=== PATIENT | female | born 1975 | race Caucasian/White ===

== ENCOUNTER 2020-08-18 11:29 | Emergency (ER) | payer OTHER ==
[~2020-08-18] VITALS: Ht 160 cm; Wt 92.1 kg
[~2020-08-18 11:29] MED LIST: FLAGYL500 MG PO; LEVAQUIN500 MG PO; METFORMIN HCL500 MG PO
[2020-08-18] MEDS ORDERED: SODIUM CHLORIDE 0.9% 1000ML 1,000 ML IV STA (11:43)
[2020-08-18] MEDS ORDERED: ONDANSETRON HCL INJ 2MG/ML 2ML 2 MG/ML VIAL IV PRN (11:45)
[2020-08-18] MEDS ORDERED: MORPHINE SULFATE INJ 4 MG/ML INJ 1ML IV PRN (11:45)
[2020-08-18 11:53] LABS: BASOPHILS # (AUTO) 0.1 (0.0-0.1); BASOPHILS % 0.8 % (0.0-1.0); EOSINOPHILS # (AUTO) 0.1 (0.0-0.4); HEMATOCRIT 43.6 % (34.2-44.1); HEMOGLOBIN 15.6 g/dL (12.0-16.0); LYMPHOCYTES # (AUTO) 1.7 (1.0-3.2); LYMPHOCYTES % 28.3 % (18.0-39.1); MEAN CORPUSCULAR HEMOGLOBIN 30.5 pg (28-32); MEAN CORPUSCULAR HGB CONC 35.8 g/dL (31-35); MEAN CORPUSCULAR VOLUME 85.2 fL (81-99); MONOCYTES # (AUTO) 0.3 (0.2-0.8); MONOCYTES % 5.3 % (4.4-11.3); NEUTROPHILS # (AUTO) 3.8 (2.1-6.9); NEUTROPHILS % 64.3 % (38.7-80.0); PLATELET COUNT 195 x10e3/uL (140-360); RED BLOOD COUNT 5.12 x10e6/uL (3.6-5.1); RED CELL DISTRIBUTION WIDTH 12.5 % (11.7-14.4)
[2020-08-18 11:57] LABS: BILIRUBIN,URINE NEGATIVE (NEGATIVE); CLARITY,URINE CLEAR (CLEAR); COLOR,URINE YELLOW (YELLOW); KETONES,URINE TRACE (NEGATIVE); LEUKOCYTE ESTERASE ,URINE NEGATIVE (NEGATIVE); NITRITE,URINE NEGATIVE (NEGATIVE); PROTEIN,URINE DIPSTICK NEGATIVE (NEGATIVE); URINE UROBILINOGEN 0.2 mg/dL (0.2 - 1)
[2020-08-18 12:02] LABS: BACTERIA,URINE FEW /HPF; EPITHELIAL CELLS,URINE FEW /LPF; MUCUS,URINE RARE (RARE); WBC,URINE (MAN) 0-5 /HPF (0-5)
--- NOTE | 2020-08-18 12:05 | Emergency Department Note ---
History of Present Illnes History of Present Illness Chief Complaint: Abdominal Complaints History of Present Illness This is a 45 year old female arrived to the ED with complaints of abdominal pain nausea vomiting for several days. Sensation states she has multiple family members with colon cancer and she is concerned to getting the same. Patient states she had a colonoscopy 5 years ago that removed benign polyps. Patient states she was told to follow-up in 7 years that has lapsed insurance and is requesting one here in the ED. Chief Complaint Comment PATIENT IN FROM HOME WITH COMPLAINTS OF ABDOMINAL PAIN, NAUSEA, AND DIARRHEA X 5 DAYS; PATIENT RATES PAIN 8/10, APPEARS IN NO DISTRESS, HISTORY OF CROHNS - STATES THAT THIS MAY BE AN EXACERBATION OF THAT. PATIENT STATES SHE HAS BEEN OFF OF ALL OF HER MEDICATIONS X 4 YEARS DUE TO INSURANCE REASONS Historian: Patient Arrival Mode: Car [employer] Supervisor Required: No Onset (how long ago): day(s) Timing of current episode: constant Progression: unchanged Chronicity: recurrent Relieving factors: none Exacerbating factors: none Past Medical/Family History Physician Review I have reviewed the patient's past medical and family history. Any updates have been documented here. Past Medical History Recent Fever: No Clinical Suspicion of Infectio: No New/Unexplained Change in Ment: No Past Medical History: Diabetes Other Medical History: CROHNS DISEASE Past Surgical History: Cholecysctectomy Other Last Tetanus: UTD Review of Systems Review of Systems Constitutional: Reports no symptoms EENTM: Reports no symptoms Cardiovascular: Reports no symptoms Respiratory: Reports no symptoms Gastrointestinal: Reports as per HPI, Reports abdominal pain Genitourinary: Reports no symptoms Musculoskeletal: Reports no symptoms Integumentary: Reports no symptoms Neurological: Reports no symptoms Psychological: Reports no symptoms Endocrine: Reports no symptoms Hematological/Lymphatic: Reports no symptoms Physical Exam Related Data Allergies: Coded Allergies: No Known Allergies (Unverified , 02/23/12) Triage Vital Signs Vital Signs Date Time Temp Pulse Resp B/P (MAP) Pulse Ox O2 Delivery O2 Flow Rate FiO2 08/18/20 11:35 99.0 115 20 169/91 99 Room Air Vital signs reviewed: Yes Physical Exam CONSTITUTIONAL Constitutional: Present well-developed, Present well-nourished HENT HENT: Present normocephalic, Present atraumatic, Present oropharynx clear/moist, Present nose normal HENT L/R: Present left ext ear normal, Present right ext ear normal EYES Eyes: Reports PERRL, Reports conjunctivae normal NECK Neck: Present ROM normal PULMONARY Pulmonary: Present effort normal, Present breath sounds normal CARDIOVASCULAR Cardiovascular: Present regular rhythm, Present heart sounds normal, Present capillary refill normal, Present normal rate GASTROINTESTINAL Abdominal: Present soft, Present bowel sounds normal, Present tender GENITOURINARY Genitourinary: Present exam deferred SKIN Skin: Present warm, Present dry MUSCULOSKELETAL Musculoskeletal: Present ROM normal NEUROLOGICAL Neurological: Present alert, Present oriented x 3, Present no gross motor or sensory deficits PSYCHOLOGICAL Psychological: Present mood/affect normal, Present judgement normal Results Laboratory Laboratory Laboratory Tests Test 08/18/20 11:40 Lab results reviewed: Yes Laboratory comments Laboratory Tests Test 08/18/20 11:40 White Blood Count 5.90 x10e3/uL (4.8-10.8) Red Blood Count 5.12 x10e6/uL (3.6-5.1) Hemoglobin 15.6 g/dL (12.0-16.0) Hematocrit 43.6 % (34.2-44.1) Mean Corpuscular Volume 85.2 fL (81-99) Mean Corpuscular Hemoglobin 30.5 pg (28-32) Mean Corpuscular Hemoglobin Concent 35.8 g/dL (31-35) Red Cell Distribution Width 12.5 % (11.7-14.4) Platelet Count 195 x10e3/uL (140-360) Neutrophils (%) (Auto) 64.3 % (38.7-80.0) Lymphocytes (%) (Auto) 28.3 % (18.0-39.1) Monocytes (%) (Auto) 5.3 % (4.4-11.3) Eosinophils (%) (Auto) 1.0 % (0.0-6.0) Basophils (%) (Auto) 0.8 % (0.0-1.0) Neutrophils # (Auto) 3.8 (2.1-6.9) Lymphocytes # (Auto) 1.7 (1.0-3.2) Monocytes # (Auto) 0.3 (0.2-0.8) Eosinophils # (Auto) 0.1 (0.0-0.4) Basophils # (Auto) 0.1 (0.0-0.1) Absolute Immature Granulocyte (auto 0.02 x10e3/uL (0-0.1) Urine Color Yellow (YELLOW) Urine Clarity Clear (CLEAR) Urine pH 5.5 (5 - 7) Urine Specific [place] 1.020 (1.010-1.025) Urine Protein Negative (NEGATIVE) Urine Glucose (UA) 2+ (NEGATIVE) Urine Ketones Trace (NEGATIVE) Urine Blood Negative (NEGATIVE) Urine Nitrite Negative (NEGATIVE) Urine Bilirubin Negative (NEGATIVE) Urine Urobilinogen 0.2 mg/dL (0.2 - 1) Urine Leukocyte Esterase Negative (NEGATIVE) Urine RBC 6-10 /HPF (0-5) Urine WBC 0-5 /HPF (0-5) Urine Epithelial Cells Few /LPF (NONE) Urine Bacteria Few /HPF (NONE) Urine Mucus Rare (RARE) Sodium Level 135 mmol/L (136-145) Potassium Level 3.6 mmol/L (3.5-5.1) Chloride Level 101 mmol/L (98-107) Carbon Dioxide Level 21 mmol/L (22-29) Anion Gap 16.6 mmol/L (8-16) Blood Urea Nitrogen 8 mg/dL (7-26) Creatinine 0.85 mg/dL (0.57-1.11) Estimat Glomerular Filtration Rate > 60 ML/MIN (60-) BUN/Creatinine Ratio 9 (6-25) Glucose Level 368 mg/dL (74-118) Calcium Level 8.7 mg/dL (8.4-10.2) Total Bilirubin 1.4 mg/dL (0.2-1.2) Aspartate Amino Transf (AST/SGOT) 58 IU/L (5-34) Alanine Aminotransferase (ALT/SGPT) 55 IU/L (0-55) Alkaline Phosphatase 96 IU/L (40-150) Creatine Kinase 92 IU/L (29-168) Creatine Kinase MB 0.70 ng/mL (0-5.0) Troponin I < 0.001 ng/mL (0-0.300) Total Protein 7.9 g/dL (6.5-8.1) Albumin 4.2 g/dL (3.5-5.0) Globulin 3.7 g/dL (2.3-3.5) Albumin/Globulin Ratio 1.1 (0.8-2.0) Lipase 41 U/L (8-78) Human Chorionic Gonadotropin, Qual Negative (NEGATIVE) Imaging Imaging results reviewed: Yes Impressions IMPRESSION: No acute findings in the abdomen or pelvis. Diffuse hepatic steatosis. Mild splenomegaly. Assessment & Plan Medical Decision Making MDM 45-year-old well-appearing female arrived to the ED with diffuse abdominal pain. Patient's labwork unremarkable. He should suggest with history of Crohn's disease in the past and is not on any maintenance medications. Patient CT findings unremarkable. Patient noted relief with pain medications in the emergency department. Patient stable for discharge home with outpatient follow- up. All clinical impressions and diagnoses provided are preliminary ED determinations subject to the inherent limitations of an emergent non-scheduled evaluation and possible lack of comprehensive previous records. All patient care including history taking, review of systems, physical exam, nursing notes review, medical decision making, clinical course management in the emergency department, clinical impression, disposition and plan formulation was performed on the date of service. This note was created using a voice-recognition transcribing system. Incorrect words or phrases may have been missed during proofreading. Please interpret accordingly. Assessment & Plan Final Impression: (1) Abdominal pain Depart Disposition: HOME, SELF-CARE Last Vital Signs Date Time Temp Pulse Resp B/P (MAP) Pulse Ox O2 Delivery O2 Flow Rate FiO2 08/18/20 11:35 99.0 115 20 169/91 99 Room Air Home Meds Active Scripts Prednisone (PREDNISONE) 20 Mg Tab, 40 MG PO DAILY, #5 TAB Prov:SANDEEP BARBA DO 08/18/20 Ondansetron Hcl* (ZOFRAN*) 4 Mg Tablet, 4 MG SL Q6H PRN for NAUSEA, #14 MG 0 Refills Prov:SANDEEP BARBA DO 08/18/20 Tramadol Hcl (ULTRAM) 50 Mg Tablet, 50 MG PO Q6HR PRN for ABDOMINAL PAIN, #14 TAB Prov:SANDEEP BARBA DO 08/18/20 Reported Medications Metformin Hcl (METFORMIN HCL) 500 Mg Tablet, 1000 MG PO BID, #60 TAB 06/28/15 Medications in the ED Sodium Chloride 1,000 ml @ 0 mls/hr Q0M STAT IV ; Start 08/18/20 at 11:43; Stop 08/18/20 at 11:47; Status DC Morphine Sulfate 4 mg Q6H PRN IV SEVERE PAIN (7-10); Start 08/18/20 at 11:45; Stop 08/25/20 at 11:44 Ondansetron HCl 4 mg Q6H PRN IV NAUSEA AND VOMITING; Start 08/18/20 at 11:45; Stop 09/17/20 at 11:44 SANDEEP BARBA DO Aug 18, 2020 12:04
[2020-08-18 12:14] LABS: ALANINE AMINOTRANSFERASE 55 IU/L (0-55); ALBUMIN 4.2 g/dL (3.5-5.0); ALBUMIN/GLOBULIN RATIO 1.1 (0.8-2.0); ALKALINE PHOSPHATASE 96 IU/L (40-150); ANION GAP 16.6 mmol/L (8-16); BLOOD UREA NITROGEN 8 mg/dL (7-26); BUN/CREATININE RATIO 9 (6-25); CALCIUM 8.7 mg/dL (8.4-10.2); CARBON DIOXIDE 21 mmol/L (22-29); CHLORIDE 101 mmol/L (98-107); CREATINE KINASE 92 IU/L (29-168); CREATININE, SERUM 0.85 mg/dL (0.57-1.11); EST GLOMERULAR FILTRATION RATE > 60 ML/MIN (60-); GLUCOSE 368 mg/dL (74-118); POTASSIUM 3.6 mmol/L (3.5-5.1); SODIUM 135 mmol/L (136-145)
[2020-08-18 12:15] LABS: LIPASE 41 U/L (8-78)
[2020-08-18] MEDS ORDERED: FENTANYL CITRATE/PF 100MCG/2 ML INJ IV ONE (15:30)
--- NOTE | 2020-08-18 16:59 | Diagnostic Imaging Report ---
EXAM: CT Abdomen and Pelvis WITH intravenous contrast INDICATION: Abdominal pain COMPARISON: Report from CT abdomen and pelvis of 12/12/2013 (images not available for comparison). TECHNIQUE: Abdomen and pelvis were scanned utilizing a multidetector helical scanner from the lung base to the pubic symphysis after administration of IV contrast. Coronal and sagittal reformations were obtained. Routine protocol was performed. Scan was performed during portal venous phase. IV CONTRAST: 100mL of Isovue 370 ORAL CONTRAST: Water RADIATION DOSE: Total DLP: 713 mGy*cm Dose modulation, iterative reconstruction, and/or weight based adjustment of the mA/kV was utilized to reduce the radiation dose to as low as reasonably achievable. FINDINGS: LOWER THORAX: Normal. HEPATOBILIARY: Diffuse hepatic steatosis. No focal liver lesion. Status post cholecystectomy. Dilation of the common bile duct to 13 mm, likely due to reservoir effect. SPLEEN: Mild splenomegaly to 13.7 cm. PANCREAS: No focal masses or ductal dilatation. ADRENALS: No adrenal nodules. KIDNEYS/URETERS: No hydronephrosis, stones, or solid mass lesions. PELVIC ORGANS/BLADDER: Unremarkable. PERITONEUM / RETROPERITONEUM: No free air or fluid. LYMPH NODES: No lymphadenopathy. VESSELS: Unremarkable. GI TRACT: No distention or wall thickening. BONES AND SOFT TISSUES: Unremarkable. IMPRESSION: No acute findings in the abdomen or pelvis. Diffuse hepatic steatosis. Mild splenomegaly. Signed by: Layton Randloph MD on 08/18/2020 4:56 PM
[2020-08-18] MEDS ORDERED: SODIUM CHLORIDE 0.9% 50ML 50 ML ONE (17:32)
[2020-08-18] MEDS ORDERED: IOPAMIDOL 370 MG/ML 200 ML INFUS..BTL INJ ONE (17:33)
[2020-08-18] MEDS ORDERED: ULTRAM50 MG PO (17:40)
[2020-08-18] MEDS ORDERED: ZOFRAN4 MG SL (17:40)
[2020-08-18] MEDS ORDERED: PREDNISONE20 MG PO (17:47)
[2020-08-18] MEDS ORDERED: COLACE100 MG PO (17:55)
--- OUTSIDE RECORDS SUMMARY | 2020-08-19 10:25 | XMS REPORT | Continuity of Care Document ---
Author Author [facility] t Organization [facility] Address [address] [place] [address] Phone Unavailable Care Team Providers Care Fine Grader Name Role Phone REBEKAH, (NON STAFF) PARAMJIT PCP Kayleigh BARBA Attphys Unavailable Nuria Reyes Attphys Jake Middleton Attphys Nickolas Kaur Attphys Payers Payer Name Policy Type Policy Number Effective Date Expiration Date Kayleigh Haro o [id number] 2011 00:00:00 SINGH [facility] Problems Condition Name Condition Details Condition Category Status Onset Date Resolution Date Last Treatment Date Treating Clinician Comments Source FOLLOW UP FOLL OW UP Active 09/27/2016 [facility] Diagnosis Active 2016-09-27 00:00:00 2016-11-21 10:14:00 Kriss Gannon LFTS ABNORMAL, DIARRHEA, CROHNS DISEASE, LFTS ABNORMAL, DIARRHEA, CROHNS DISEASE, Active 06/08/2016 [facility] Diagnosis Active 2016-06-08 00:00:00 2016-07-23 09:09:00 Kriss Gannon BDDC/ K50.90 CROHN'S DISEASE, UNSPECIFIE BDDC/ K50.90 CROHN'S DISEASE, UNSPECIFIE Active 05/18/2016 [facility] Diagnosis Active 2016-05-18 00:00:00 2016-07-19 15:43:00 Kriss Gannon BDDC - F/UPER BO BDDC - F/UPER BO Active 01/17/2016 [facility] Diagnosis Active 2016-01-17 00:00:00 2016-05-16 09:43:00 Kriss Gannon Z12.31 - ENCNTR SCREEN MAMMOGRAM FOR MA Z12.31 - ENCNTR SCREEN MAMMOGRAM FOR MA Active 12/27/2015 [facility] [place] Diagnosis Active 2015-12-27 00:01:00 2016-02-13 16:28:00 mario Gannon BDDC-REGIONAL ENTERITIS BDDC -REGIONAL ENTERITIS Active 08/27/2014 [facility] Diagnosis Active 2014-08-27 00:00:00 2014-09-02 09:15:00 Kriss Gannon 2 MO FU 2 MO FU Active 05/07/2014 [facility] Diagnosis Active 2014-05-07 00:00:00 2014-07-29 15:38:00 Kriss Gannon NEW PT/ IBD NEW PT/ IBD Active 03/24/2014 [facility] Diagnosis Active 2014-03-24 00:00:00 2014-04-28 14:56:00 [facility] [address] Urinary tract infection Urinary tract infection Problem Active [facility] Abdominal pain Problem Active [facility] Encounter for screening mammogram for malignant neopla sm of breast Encounter for screening mammogram for malignant neoplasm of breast 02/06/2020 [facility] [place] Problem 2020-02-06 00:28:43 Kriss Gannon Inflammatory bowel disease (disorder) Inflammatory bowel disease (disorder) Resolved Problem 02/06/2020 [facility] [place] Problem Resolved 2020-02-06 00:28:43 Robert Gannon Crohn's disease (disorder) Electrical Systems Drafter hn's disease (disorder) Active Problem 02/06/2020 [facility] [place] Problem Active 2020-02-06 00:28:43 Bailee Gannon Diabetes mellitus (disorder) D iabetes mellitus (disorder) Active Problem 02/06/2020 [facility] [place] Problem Active 2020-02-06 00:28:43 Kriss Gannon Allergies, Adverse Reactions, Alerts Allergy Name Allergy Type Status Severity Reaction(s) Onset Date Inacti ve Date Treating Clinician Comments Source No Known Allergies DA Active U 2019-06-29 00:00:00 [facility] No Known Allergies DA Active U 2019-03-10 00:00:00 [facility] No Known Allergies DA Active U 2013-08-31 00:00:00 [facility] No Known Medication Allergies No Known Medication Allergies Active [facility] Social History Social Habit Start Date Stop Date Quantity Comments Source Sex Assigned At 1975 00:00:00 1975 00:00:00 Female [facility] Smoking Status Start Date Stop Date Source Social History [facility] Medications Ordered Medication Name Filled Medication Name Start Date Stop Da te Current Medication? Ordering Clinician Indication Dosage Frequency Signature (SIG) Comments Components Source Docusate Sodium (Colace) 100 Mg CAP Docusate Sodium (Colace) 100 Mg CAP 2020-08-18 17:55:00 Yes 100 Daily [facility] Prednisone Prednisone 2020-08-18 17:47:00 Yes 40 Vicki ly [facility] Ondansetron Hcl (Zofran*) 4 Mg TABLET Ondansetron Hcl (Zofra n*) 4 Mg TABLET 2020-08-18 17:40:00 Yes 4 Every 6 Hours as n eeded for Nausea [facility] Tramadol Hcl (Ultram) 50 Mg TABLET Tramadol Hcl (Ultram) 50 Mg TABLET 2020-08-18 17:40:00 Yes 50 Every 6 Hours as needed for A bdominal Pain [facility] GoLYTELY oral powder for reconstitution 2016-05-18 17:19:00 Yes See Instructions, Take as directed by physician. Give jug for colonoscopy., # 1 ea, 0 Refill(s), Pharmacy: [facility] glimepiride 2015-12-16 15:17:00 Yes PO, Chucho y, 0 Refill(s) [facility] canagliflozin 300 MG Oral Tablet [Invokana] 2015-12-16 15:17:00 Yes 300 mg = 1 tab, PO, Before Breakfast, # 30 tab, 5 Refill(s) [facility] POLYETHYLENE GLYCOL 3350 60 MG/ML / Pota ssium Chloride 0.01 MEQ/ML / Sodium Bicarbonate 0.02 MEQ/ML / Sodium Chloride 0.025 MEQ/ML / sodium sulfate 0.04 MEQ/ML Oral Solution [Golytely] 2014-08-27 14:47:00 No 240 ml, PO, Q10Min, # 1 ea, 0 Refill(s), Pharmacy: [id number] POLYETHYLENE GLYCOL 3350 60 MG/ML / Pota ssium Chloride 0.01 MEQ/ML / Sodium Bicarbonate 0.02 MEQ/ML / Sodium Chloride 0.025 MEQ/ML / sodium sulfate 0.04 MEQ/ML Oral Solution [Golytely] 2014-08-27 14:42:00 Yes 240 ml, PO, Q10Min, # 1 ea, 0 Refill(s), Pharmacy: [facility] Cimzia 2014-08-27 13:40:00 Yes 0 Refill(s) [facility] Metformin Hcl Metformin Hcl Yes 1000 Twice A Day [facility] Levofloxacin (Levaquin) 500 Mg TABLET Levofloxacin (Levaquin) 50 0 Mg TABLET 2015-06-28 00:00:00 No 500 Daily [facility] Metformin Hcl Metformin Hcl 2015-06-28 00:00:00 No 500 Twice A Day [facility] Metronidazole (Flagyl) 500 Mg TABLET Metronidazole (Flagyl) 500 Mg TABLET 2015-06-28 00:00:00 No 500 Three Times A Day [facility] Vital Signs Vital Name Observation Time Observation Value Comments Source Weight 2020-08-18 11:35:00 203 [lb_av] [facility] BMI (Body Mass Index) 2020-08-18 11:35:00 36.0 kg/m2 [facility] Weight 2016-05-18 16:02:00 Kriss Gannon BMI Calculated 2016-05-18 16:02:00 Klarissa Francisco Temperature Oral (F) 2016-05-18 16:02:00 99.1 F Kriss Gannon Heart Rate 2016-05-18 16:02:00 Kriss Gannon Height 2016-05-18 16:02:00 160.02 cm Kriss Gannon Systolic (mm Hg) 2016-05-18 16:02:00 Álvaro rial Jagdeep Diastolic (mm Hg) 2016-05-18 16:02:00 Mem orial [facility] BMI Calculated 2015-12-16 15:14:00 [facility] [place] Weight 2015-12-16 15:14:00 [facility] Height 2015-12-16 15:14:00 160.02 cm [facility] [place] Systolic (mm Hg) 2015-12-16 15:14:00 Álvaro rial [address] Diastolic (mm Hg) 2015-12-16 15:14:00 [facility] [place] Respitory Rate 2015-12-16 15:14:00 [facility] [place] Systolic (mm Hg) 2014-08-27 13:41:00 Álvaro rial [place] Diastolic (mm Hg) 2014-08-27 13:41:00 [facility] [place] Respitory Rate 2014-08-27 13:41:00 [facility]ori [facility] [place] Height 2014-08-27 13:41:00 160.02 cm [facility] [place] Weight 2014-08-27 13:41:00 [facility] BMI Calculated 2014-08-27 13:41:00 [facility] [place] Procedures Procedure Date / Time Performed Performing Clinician [facility] Computed tomography of abdomen and pelvis with contrast 00:00:00 [facility] Barium swallow [facility] Colonoscopy [facility] Excision of gallbladder [facility] Liver US scan [facility] Plan of Care Planned Activity Planned Date Details Comments Source Instructions Abdominal Pain - Adult [facility] Encounters Start Date/Time End Date/Time Encounter Type Admission Type Attendi [facility] Facility Care Department Encounter ID Source 2020-08-18 12:38:00 2020-08-18 18:17:00 Departed Emergency Room 1 SANDEEP BARBA [facility] [id number] KYLE Garcia [facility] 2020-02-03 13:26:00 2020-02-03 23:59:00 [id number] 2019-09-16 13:28:00 2019-09-16 14:52:00 Departed Emergency Room [facility] [id number] [facility] 2016-05-18 11:01:00 2016-05-18 23:59:00 Outpatient Haresh Middleton [facility] [id number] 2016-01-17 14:04:00 2016-01-17 23:59:00 Outpatient Nickolas Kaur [facility] [id number] 2015-12-16 09:01:00 2015-12-16 23:59:00 Outpatient Nickolas Kaur [facility] [id number] 2014-09-02 09:15:00 2014-09-02 14:00:00 Outpatient Nickolas Kaur [facility] [id number] 2014-08-27 08:31:00 2014-08-27 23:59:00 Outpatient Nickolas Kaur [facility] [id number] Results Test Description Test Time Test Comments Results Result Comments Source CT ABDOMEN/PELVIS W 2020-08-18 16:51:[address] [address] Patient Name: ELIANE GUTIÉRREZ MR #: [id number] : 1975 Age/Sex: 45/F Req #: [id number] Adm Physician: Ordered by: SANDEEP BARBA DO Report #: [id number] Location: ER Room/Bed: Procedure: [id number] CT/CT ABDOMEN/PELVIS W Exam Date: 08/18/20 Exam Time: 1620 REPORT STATUS: Signed EXAM: CT Abdomen and Pelvis WITH intravenous contrast INDICATION: Abdominal pain COMPARISON: Report from CT abdomen and pelvis of 12/12/2013 (images not available for comparison). TECHNIQUE: Abdomen and pelvis were scanned utilizing a multidetector helical scanner from the lung base to the pubic symphysis after administration of IV contrast. Coronal and sagittal reformations were obtained. Routine protocol was performed. Scan was performed during portal venous phase. IV CONTRAST: 100mL of Isovue 370 ORAL CONTRAST: Water RADIATION DOSE: Total DLP: 713 mGy*cm Dose modulation, iterative reconstruction, and/or weight based adjustment of the mA/kV was utilized to reduce the radiation dose to as low as reasonably achievable. FINDINGS: LOWER THORAX: Normal. HEPATOBILIARY: Diffuse hepatic steatosis. No focal liver lesion. Status post cholecystectomy. Dilation of the common bile duct to 13 mm, likely due to reservoir effect. SPLEEN: Mild splenomegaly to 13.7 cm. PANCREAS: No focal masses or ductal dilatation. ADRENALS: No adrenal nodules. KIDNEYS/URETERS: No hydronephrosis, stones, or solid mass lesions. PELVIC ORGANS/BLADDER: Unremarkable. PERITONEUM / RETROPERITONEUM: No free air or fluid. LYMPH NODES: No lymphadenopathy. VESSELS: Unremarkable. GI TRACT: No distention or wall thickening. BONES AND SOFT TISSUES: Unremarkable. IMPRESSION: No acute findings in the abdomen or pelvis. Diffuse hepatic steatosis. Mild splenomegaly. Signed by: Myah Patel MD on 08/18/2020 4:56 PM Dictated By: MYAH PATEL MD 55 Transcribed By: SAMUEL on 08/18/201655 COPY TO: SANDEEP BARBA, DO Blood leukocytes automated count (number/volume) 2020-08-18 11:40:00 Test Item White Blood Count (test code = 6690-2) 5.90 4.8-10.8 [facility] count (number/volume)2020-08-18 11:40:00* Test Item Value Reference Range Interpretation Comments Red Blood Count (test code = 789-8) 5.12 3.6-5.1 [facility] hemoglobin measurement (moles/volume)2020-08-18 11:40:00* Test Item Value Reference Range Interpretation Comments Hemoglobin (test code = 13311-6) 15.6 12.0-16.0 [facility] CenterAutomated blood hematocrit (volume fraction)2020-08-18 11:40:00* Test Item Value Reference Range Interpretation Comments Hematocrit (test code = 4544-3) 43.6 34.2-44.1 [facility] CenterAutomated erythrocyte mean corpuscular klekff4813-34-66 11:40:00* Test Item Value Reference Range Interpretation Comments Mean Corpuscular Volume (test code = 787-2) 85.2 81-99 [facility] CenterAutomated erythrocyte mean corpuscular hemoglobin (mass per erythrocyte)2020-08-18 11:40:00* Test Item Value Reference Range Interpretation Comments Mean Corpuscular Hemoglobin (test code = 785-6) 30.5 28-32 [facility] CenterAutomated erythrocyte mean corpuscular hemoglobin concentration measurement (mass/volume)2020-08-18 11:40:00* Test Item Value Reference Range Interpretation Comments Mean Corpuscular Hemoglobin Concent (test code = 786-4) 35.8 31-35 [facility] CenterRDW CkdSw-Unu4248-53-17 11:40:00* Test Item Value Reference Range Interpretation Comments Red Cell Distribution Width (test code = 77304-8) 12.5 11.7 -14.4 [facility] CenterAutomated blood platelet count (count/volume)2020-08-18 11:40:00* Test Item Value Reference Range Interpretation Comments Platelet Count (test code = 777-3) 195 140-360 [facility] CenterAutomated blood segmented neutrophil count as percentage of total sityfwfkxb5873-68-38 11:40:00* Test Item Value Reference Range Interpretation Comments Neutrophils (%) (Auto) (test code = 15853-2) 64.3 38.7-80.0 [facility] CenterAutomated blood lymphocyte count as percentage ot total evpgvihgcs4494-35-47 11:40:00* Test Item Value Reference Range Interpretation Comments Lymphocytes (%) (Auto) (test code = 736-9) 28.3 18.0-39.1 [facility] CenterAutat[facility]ed blood monocyte count as percentage of total bhzergucpq9968-53-43 11:40:00* Test Item Value Reference Range Interpretation Comments Monocytes (%) (Auto) (test code = 5905-5) 5.3 4.4-11.3 [facility] CenterAutomated blood eosinophil count as percentage of total oznftiwyhn9650-06-99 11:40:00* Test Item Value Reference Range Interpretation Comments Eosinophils (%) (Auto) (test code = 713-8) 1.0 0.0-6.0 [facility] CenterAutomated blood basophil count as percentage of total pynqeafzxr9277-32-51 11:40:00* Test Item Value Reference Range Interpretation Comments Basophils (%) (Auto) (test code = 706-2) 0.8 0.0-1.0 [facility] CenterFluoroscopic procedure less than one hour pkpzizgk5612-11-68 11:40:00* Test Item Value Reference Range Interpretation Comments IM GRANULOCYTES % (test code = IM GRANULOCYTES %) 0.3 0.0- 1.0 [facility] CenterAutom[facility] blood neutrophil count 2020-08-18 11:40:00* Test Item Value Reference Range Interpretation Comments Neutrophils # (Auto) (test code = 751-8) 3.8 2.1-6.9 [facility] CenterBlood lymphocytes count (number/volume) 2020-08-18 11:40:00* Test Item Value Reference Range Interpretation Comments Lymphocytes # (Auto) (test code = 46289-8) 1.7 1.0-3.2 [facility] CenterBlood monocytes automated count (number/volume)2020-08-18 11:40:00* Test Item Value Reference Range Interpretation Comments Monocytes # (Auto) (test code = 742-7) 0.3 0.2-0.8 [facility] CenterAutomated blood eosinophil count 2020-08-18 11:40:00* Test Item Value Reference Range Interpretation Comments Eosinophils # (Auto) (test code = 711-2) 0.1 0.0-0.4 [facility] CenterAutomated blood basophil count (count/volume)2020-08-18 11:40:00* Test Item Value Reference Range Interpretation Comments Basophils # (Auto) (test code = 704-7) 0.1 0.0-0.1 [facility] CenterFluoroscopic procedure less than one hour kpxaslur5938-02-52 11:40:00* Test Item Value Reference Range Interpretation Comments Absolute Immature Granulocyte (auto (linus t code = Absolute Immature Granulocyte (auto) 0.02 0-0.1 [facility] CenterUrine color pyrjuookigyxb6007-58-47 11:40:00* Test Item Value Reference Range Interpretation Comments Urine Color (test code = 5778-6) YELLOW YELLOW [facility] CenterUrine xgpqlcv6410-49-18 11:40:00* Test Item Value Reference Range Interpretation Comments Urine Clarity (test code = 37218-4) CLEAR CLEAR [facility] gravity of Urine by Test strip 2020-08-18 11:40:00* Test Item Value Reference Range Interpretation Comments Urine Specific [place] (test code = 5811-5) 1.020 1.010-1.02 5 [facility] CenterU[facility] pH measurement by automated test ducaw7386-36-98 11:40:00* Test Item Value Reference Range Interpretation Comments Urine pH (test code = 84876-5) 5.5 5-7 [facility] CenterU[facility] leukocyte esterase detection by bkjixyvv3001-35-49 11:40:00* Test Item Value Reference Range Interpretation Comments Urine Leukocyte Esterase (test code = 5799-2) NEGATIVE NEGATIVE [facility] CenterUrine nitrite olxnoaogk9470-42-18 11:40:00* Test Item Value Reference Range Interpretation Comments Urine Nitrite (test code = 12620-3) NEGATIVE NEGATIVE [facility] CenterUrine protein measurement by test strip (mass/volume)2020-08-18 11:40:00* Test Item Value Reference Range Interpretation Comments Urine Protein (test code = 5804-0) NEGATIVE NEGATIVE [facility] CenterUrine glucose cgmlfavia3070-25-40 11:40:00* Test Item Value Reference Range Interpretation Comments Urine Glucose (UA) (test code = 2349-9) 2+ NEGATIVE [facility] CenterUrine ketones detection by automated test hbpgh3180-84-37 11:40:00* Test Item Value Reference Range Interpretation Comments Urine Ketones (test code = 49499-7) TRACE NEGATIVE [facility] CenterUrine urobilinogen measurement by test strip (mass/volume)2020-08-18 11:40:00* Test Item Value Reference Range Interpretation Comments Urine Urobilinogen (test code = 71649-2) 0.2 0.2-1 [facility] CenterU[facility] total bilirubin measurement (mass/volume)2020-08-18 11:40:00* Test Item Value Reference Range Interpretation Comments Urine Bilirubin (test code = 1978-6) NEGATIVE NEGATIVE [facility] CenterUrine erythrocytes jlttuxhot3674-75-86 11:40:00* Test Item Value Reference Range Interpretation Comments Urine Blood (test code = 00357-8) NEGATIVE NEGATIVE [facility] CenterAutomated urine sediment leukocyte count by microscopy (number/high power field)2020-08-18 11:40:00* Test Item Value Reference Range Interpretation Comments Urine WBC (test code = 5821-4) 0-5 0-5 [facility] CenterErythrocytes detection in urine sediment by light vnxviwikfb4773-30-38 11:40:00* Test Item Value Reference Range Interpretation Comments Urine RBC (test code = 57893-6) 6-10 0-5 [facility] CenterBacteria detection in urine sediment by light jnwlydfkiw0910-31-80 11:40:00* Test Item Value Reference Range Interpretation Comments Urine Bacteria (test code = 16428-8) FEW NONE [facility] CenterEpithelial cells detection in urine sediment by light ltaoefirqc0778-63-45 11:40:00* Test Item Value Reference Range Interpretation Comments Urine Epithelial Cells (test code = 99316-6) FEW NONE [facility] CenterMucus detection in urine sediment by light dxshwlmive6640-43-49 11:40:00* Test Item Value Reference Range Interpretation Comments Urine Mucus (test code = 8247-9) RARE RARE [facility] Hospitalerum or plasma sodium measurement (moles/volume)2020-08-18 11:40:00* Test Item Value Reference Range Interpretation Comments Sodium Level (test code = 2951-2) 135 136-145 [facility] Hospitalerum or plasma potassium measurement (moles/volume)2020-08-18 11:40:00* Test Item Value Reference Range Interpretation Comments Potassium Level (test code = 2823-3) 3.6 3.5-5.1 [facility] Hospitalerum or plasma chloride measurement (moles/volume)2020-08-18 11:40:00* Test Item Value Reference Range Interpretation Comments Chloride Level (test code = 2075-0) 101 98-107 [facility] Hospitalerum or plasma carbon dioxide, total measurement (moles/volume)2020-08-18 11:40:00* Test Item Value Reference Range Interpretation Comments Carbon Dioxide Level (test code = 2028-9) 21 22-29 [facility] Hospitalerum or plasma anion lmu5430-33-14 11:40:00* Test Item Value Reference Range Interpretation Comments Anion Gap (test code = 08235-4) 16.6 8-16 [facility] Hospitalerum or plasma urea nitrogen measurement (mass/volume)2020-08-18 11:40:00* Test Item Value Reference Range Interpretation Comments Blood Urea Nitrogen (test code = 3094-0) 8 7-26 [facility] Hospitalerum or plasma creatinine measurement (mass/volume)2020-08-18 11:40:00* Test Item Value Reference Range Interpretation Comments Creatinine (test code = 2160-0) 0.85 0.57-1.11 [facility] Hospitalerum or plasma urea nitrogen/creatinine mass thoyy0089-78-84 11:40:00* Test Item Value Reference Range Interpretation Comments BUN/Creatinine Ratio (test code = 3097-3) 9 6-25 [facility] CenterEstimated glomerular filtration rate (GFR) qijoaiemvwjhu9524-08-02 11:40:00* Test Item Value Reference Range Interpretation Comments Estimat Glomerular Filtration Rate (test code = 765953530) > 60 >60 Ranges were taken from the National Kidney Disease Education Program and the [facility] Foundation literature.Reference ranges:60 or greater: Rdybfa04-89 ( for 3 consecutive months): Chronic kidney disease 15 or less: Kidney failureBrownfield Regional Medical CenterGlucose emmvojineqi7715-22-40 11:40:00* Test Item Value Reference Range Interpretation Comments Glucose Level (test code = YYY0178) 368 74-118 [facility] Hospitalerum or plasma calcium measurement (mass/volume)2020-08-18 11:40:00* Test Item Value Reference Range Interpretation Comments Calcium Level (test code = 94858-5) 8.7 8.4-10.2 [facility] Hospitalerum or plasma total bilirubin measurement (mass/volume)2020-08-18 11:40:00* Test Item Value Reference Range Interpretation Comments Total Bilirubin (test code = 1975-2) 1.4 0.2-1.2 [facility] CenterFluoroscopic procedure less than one hour egcghxzv7159-23-74 11:40:00* Test Item Value Reference Range Interpretation Comments Aspartate Amino Transf (AST/SGOT) (test code = Aspartate Amino Transf (AST/SGOT)) 58 5-34 [facility] Hospitalerum or plasma alanine aminotransferase measurement (enzymatic activity/volume)2020-08-18 11:40:00* Test Item Value Reference Range Interpretation Comments Alanine Aminotransferase (ALT/SGPT) (test code = 1742-6) 55 0-55 [facility] Hospitalerum or plasma protein measurement (mass/volume)2020-08-18 11:40:00* Test Item Value Reference Range Interpretation Comments Total Protein (test code = 2885-2) 7.9 6.5-8.1 [facility] Hospitalerum or plasma albumin measurement (mass/volume)2020-08-18 11:40:00* Test Item Value Reference Range Interpretation Comments Albumin (test code = 1751-7) 4.2 3.5-5.0 [facility] CenterPlasma globulin measurement (mass/volume) 2020-08-18 11:40:00* Test Item Value Reference Range Interpretation Comments Globulin (test code = 28542-0) 3.7 2.3-3.5 [facility] Hospitalerum or plasma albumin/globulin mass nrgoa6807-89-37 11:40:00* Test Item Value Reference Range Interpretation Comments Albumin/Globulin Ratio (test code = 1759-0) 1.1 0.8-2.0 [facility] Hospitalerum or plasma alkaline phosphatase measurement (enzymatic activity/volume)2020-08-18 11:40:00* Test Item Value Reference Range Interpretation Comments Alkaline Phosphatase (test code = 6768-6) 96 40-150 [facility] plasma creatine kinase measurement (enzymatic activity/volume)2020-08-18 11:40:00* Test Item Value Reference Range Interpretation Comments Creatine Kinase (test code = 2157-6) 92 29-168 [facility] plasma creatine kinase MB measurement (mass/volume)2020-08-18 11:40:00* Test Item Value Reference Range Interpretation Comments Creatine Kinase MB (test code = 73370-9) 0.70 0-5.0 [facility] by highly sensitive enzyme [id number] 11:40:00* Test Item Value Reference Range Interpretation Comments Troponin I (test code = 80454-5) < 0.001 0-0.300 [facility] plasma lipase measurement (enzymatic activity/volume)2020-08-18 11:40:00* Test Item Value Reference Range Interpretation Comments Lipase (test code = 3040-3) 41 8-78 [facility] or plasma choriogonadotropin ( test) [id number] 11:40:00* Test Item Value Reference Range Interpretation Comments Human Chorionic Gonadotropin, Qual (test code = 2118-8) NEGATIVE NEGATIVE [facility] [id number] 14:10:00* Test Item Value Reference Range Interpretation Comments Bedside Glucose (test code = 84859-5) 235 70-120 H Meter ID: [id number]- [facility] ABD PELVIS W/[id number] 10:40:00 Name: ELIANE GUTIÉRREZ [facility] : 1975 Age/S: 43 / F [address] Unit #: [id number] Loc: KADEEM Rawls [address] Phys: Evie Fisher MD Acct: [id number] Dis Date: Status: REG ER PHONE #: [phone] Exam Date: 03/10/2019 1010 FAX #: [phone] Reason: abd pain, v/d EXAMS: CPT CODE: [id number] CT ABD PELVIS W/CONT 85634 HISTORY: Abdominal pain and nausea and vomiting. COMPARISON: CT scan from May 17, 2009. CT abdomen and pelvis with IV contrast: 100 mL of Isovue-370. Automated exposure control. CT ABDOMEN: The lung bases are clear. Dependent changes. Hepatic parenchyma is enhancing homogeneously. No discrete mass. The liver is enlarged at 22.4 cm in length. Patient is post cholecystectomy. Portal vein and hepatic artery are patent. The spleen is not enlarged with accessory spleen. The stomach distends incompletely and is limited in evaluation. Thickened distal esophagus. The pancreas is enhancing homogeneously. Unremarkable adrenals. Kidneys are free from hydroureteronephrosis. Homogeneous enhancement. Bilateral excretion is noted. No pathologic adenopathy. Well- opacified abdominal and pelvic vasculature. No bowel obstruction or colitis or diverticulitis or enteritis. Constipation. CT PELVIS: Appendix is poorly visible but normal. Pelvic bowel loops are unobstructed. Unremarkable well-distended urinary bladder. Unremarkable uterus. Left ovarian cyst measured 2 .2 cm with average Hounsfield unit measurement of 14. Right ovarian cyst m easured 4.4 cm with average Hounsfield unit measurement of 14. No free flu id or free air or abscess. No pelvic pathologic adenopathy. Subcutaneous tissues and musculature are normal in appearance. No lytic or blastic lesions are noted within the bony skeleton. Bone island within th e left acetabulum. PAGE 1 Signed Report (CONTINUED) Name: ELIANE GUTIÉRREZ [facility] : 1975 Age/S: 43 / F [address] [facility] Unit #: [id number] Loc: KADEEM Rawls [address] Phys: Evie Fisher MD Acct: [id number] Dis Date: Status: REG ER PHONE #: [phone] Exam Date: 03/10/2019 1010 FAX #: [phone] Reason: abd pain, v/d EXAMS: CPT CODE: [id number] CT ABD PELVIS W/CONT 80069 < Continued> IMPRESSION: Bilateral ovarian cyst measuring 4.4 cm on the right and 2.2 cm on the left. Unremarkable uterus. No free fluid, free air or abscess. Poorly visualized normal appendix without bowel obstruction or colitis or diverticulitis or enteritis. Hepatomegaly at 22.4 cm in length. Patient is post cholecystectomy. at 1040 Reported and signed by: Ciaran Velsaquez M.D. CC: Evie Fisher MD Technologist:Hattie Vines RT(R); Peggy Barakat CTDI: DLP: Trnscb Date/Time: 03/10/2019 (0000) t.SDR.TH4 Orig Print D/T: S: 03/10/2019 (1858) CTDI: DLP: PAGE 2 Signed Report URINALYSIS COMPLETE 2019-03-10 10:18:00* Test Item Value Reference Range Interpretation Comments UA COLOR (test code = COLU) STRAW YELLOW UA APPEARANCE (test code = APPU) SLIGHTLY CLOUDY CLEAR A UA GLUCOSE DIPSTICK (test code = DGLUU) >=500 mg/dL NEGATIVE A UA BILIRUBIN DIPSTICK (test code = BILU) NEGATIVE mg/dL NEGATIVE UA KETONE DIPSTICK (test code = KETU) 5 (Trace) mg/dL NEGATIVE A UA SPECIFIC GRAVITY (test code = SGU) 1.030 1.001-1.035 UA BLOOD DIPSTICK (test code = KEITH) Negative mg/dL NEGATIVE UA PH DIPSTICK (test code = TRISTON) 6.0 5.0-8.0 UA PROTEIN DIPSTICK (test code = PROU) NEGATIVE mg/dL NEGATIVE UA UROBILINIOGEN DIPSTICK (test code = URO) NEGATIVE mg/dL NEGATIVE UA NITRITE DIPSTICK (test code = FRANK) NEGATIVE NEGATIVE UA LEUKOCYTE ESTERASE W REFLEX (test code = LEUUR) NEGATIVE Familia/uL NEGATIVE UA WBC (test code = WBCU) 0-5 per HPF 0-5 UA RBC (test code = RBCU) 6-10 #/HPF 0-5 A UA EPITHELIAL CELLS (test code = EPIU) MOD per HPF FEW UA BACTERIA (test code = BACU) MANY #/HPF NONE A UA YEAST (test code = YEASTU) NONE SEEN #/HPF NONE Urine Source? Clean CatchBASIC METABOLIC [id number] 09:52:00* Test Item Value Reference Range Interpretation Comments SODIUM (test code = NA) 133 mmol/L 136-145 L POTASSIUM (test code = K) 4.3 mmol/L 3.5-5.1 N CHLORIDE (test code = CL) 100.0 mmol/L 98-107 N CARBON DIOXIDE (test code = CO2) 23.0 mmol/L 21-32 N ANION GAP (test code = GAP) 14.3 10-20 N GLUCOSE (test code = GLU) 414 mg/dL 74-106 H BLOOD UREA NITROGEN (test code = BUN) 16 mg/dL 7-18 N GLOMERULAR FILTRATION RATE (test code = GFR) > 60 mL/min >=60 Estimated GFR by using Modified MDRD formula.Chronic kidney disease is defined as either kidney damageor GFR <60 mL/min/1.73 m2 for >3 months. CREATININE (test code = CREAT) 0.80 mg/dL 0.55-1.02 N Note change in reference range due to change in reagent. BUN/CREATININE RATIO (test code = BUN/CREA) 20.0 10-20 N CALCIUM (test code = CA) 8.9 mg/dL 8.5-10.1 N HEPATIC FUNCTION [id number] 09:52:00* Test Item Value Reference Range Interpretation Comments TOTAL PROTEIN (test code = PROT) 8.0 gram/dL 6.4-8.2 N ALBUMIN (test code = ALB) 3.6 g/dL 3.4-5.0 N GLOBULIN (test code = GLOB) 4.4 gram/dL 2.7-4.2 H ALBUMIN/GLOBULIN RATIO (test code = A/G) 0.8 0.75-1.50 N BILIRUBIN TOTAL (test code = BILT) 1.00 mg/dL 0.0-1.0 N BILIRUBIN DIRECT (test code = BILD) 0.22 mg/dL 0.0-0.20 H SGOT/AST (test code = AST) 62 IUnit/L 15-37 H SGPT/ALT (test code = ALT) 88 IUnit/L 12-78 H ALKALINE PHOSPHATASE TOTAL (test code = ALKP) 109 IUnit/L 45-117 N Note change in reference range due to change in reagent. [id number] 09:52:00* Test Item Value Reference Range Interpretation Comments LIPASE (test code = LIP) 265 U/L 73.0-393.0 N HCG SERUM [id number] 09:52:00* Test Item Value Reference Range Interpretation Comments HCG SERUM QUAL (test code = HCGQL) NEGATIVE NEGATIVE This HCGQL test is NOT applicable for MALE patients.Check with nurse about probable order error.If Tumor Marker Test needed, nurse should order test "HCGTU"(Test #550.29509) BASIC METABOLIC [id number] 09:35:00* Test Item Value Reference Range Interpretation Comments SODIUM (test code = NA) 133 mmol/L 136-145 L POTASSIUM (test code = K) 4.3 mmol/L 3.5-5.1 N CHLORIDE (test code = CL) 100.0 mmol/L 98-107 N CARBON DIOXIDE (test code = CO2) mmol/L 21-32 ANION GAP (test code = GAP) 10-20 GLUCOSE (test code = GLU) mg/dL 74-106 BLOOD UREA NITROGEN (test code = BUN) mg/dL 7-18 GLOMERULAR FILTRATION RATE (test code = GFR) mL/min >=60 CREATININE (test code = CREAT) mg/dL 0.55-1.02 BUN/CREATININE RATIO (test code = BUN/CREA) 10-20 CALCIUM (test code = CA) mg/dL 8.5-10.1 HEPATIC FUNCTION [id number] 09:35:00* Test Item Value Reference Range Interpretation Comments TOTAL PROTEIN (test code = PROT) gram/dL 6.4-8.2 ALBUMIN (test code = ALB) g/dL 3.4-5.0 GLOBULIN (test code = GLOB) gram/dL 2.7-4.2 ALBUMIN/GLOBULIN RATIO (test code = A/G) 0.75-1.50 BILIRUBIN TOTAL (test code = BILT) mg/dL 0.0-1.0 BILIRUBIN DIRECT (test code = BILD) mg/dL 0.0-0.20 SGOT/AST (test code = AST) IUnit/L 15-37 SGPT/ALT (test code = ALT) IUnit/L 12-78 ALKALINE PHOSPHATASE TOTAL (test code = ALKP) IUnit/L 45-117 [id number] 09:35:00* Test Item Value Reference Range Interpretation Comments LIPASE (test code = LIP) U/L 73.0-393.0 HCG SERUM [id number] 09:35:00* Test Item Value Reference Range Interpretation Comments HCG SERUM QUAL (test code = HCGQL) NEGATIVE CBC W/O [id number] 09:35:00* Test Item Value Reference Range Interpretation Comments WHITE BLOOD CELL (test code = WBC) 5.3 K/mm3 4.5-12.5 N RED BLOOD CELL (test code = RBC) 4.82 mill/mm3 3.7-5.2 N HEMOGLOBIN (test code = HGB) 15.0 gram/dL 11.5-15.5 N HEMATOCRIT (test code = HCT) 43.9 % 36.0-46.0 N MEAN CELL VOLUME (test code = MCV) 91.1 fL 80-98 N MEAN CELL HGB (test code = MCH) 31.1 picogram 27.0-33.0 N MEAN CELL HGB CONCETRATION (test code = MCHC) 34.2 gram/dL 33.0-36. 0 N RED CELL DISTRIBUTION WIDTH (test code = RDW) 12.5 % 11.6-16. 2 N PLATELET COUNT (test code = PLT) 168 K/mm3 150-450 N MEAN PLATELET VOLUME (test code = MPV) 10.0 fL 6.7-11.0 N BASIC METABOLIC [id number] 09:35:00* Test Item Value Reference Range Interpretation Comments SODIUM (test code = NA) 133 mmol/L 136-145 L POTASSIUM (test code = K) 4.3 mmol/L 3.5-5.1 N CHLORIDE (test code = CL) 100.0 mmol/L 98-107 N CARBON DIOXIDE (test code = CO2) mmol/L 21-32 ANION GAP (test code = GAP) 10-20 GLUCOSE (test code = GLU) mg/dL 74-106 BLOOD UREA NITROGEN (test code = BUN) mg/dL 7-18 GLOMERULAR FILTRATION RATE (test code = GFR) mL/min >=60 CREATININE (test code = CREAT) mg/dL 0.55-1.02 BUN/CREATININE RATIO (test code = BUN/CREA) 10-20 CALCIUM (test code = CA) mg/dL 8.5-10.1 HEPATIC FUNCTION [id number] 09:35:00* Test Item Value Reference Range Interpretation Comments TOTAL PROTEIN (test code = PROT) gram/dL 6.4-8.2 ALBUMIN (test code = ALB) g/dL 3.4-5.0 GLOBULIN (test code = GLOB) gram/dL 2.7-4.2 ALBUMIN/GLOBULIN RATIO (test code = A/G) 0.75-1.50 BILIRUBIN TOTAL (test code = BILT) mg/dL 0.0-1.0 BILIRUBIN DIRECT (test code = BILD) mg/dL 0.0-0.20 SGOT/AST (test code = AST) IUnit/L 15-37 SGPT/ALT (test code = ALT) IUnit/L 12-78 ALKALINE PHOSPHATASE TOTAL (test code = ALKP) IUnit/L 45-117 [id number] 09:35:00* Test Item Value Reference Range Interpretation Comments LIPASE (test code = LIP) U/L 73.0-393.0 HCG SERUM [id number] 09:35:00* Test Item Value Reference Range Interpretation Comments HCG SERUM QUAL (test code = HCGQL) NEGATIVE NEGATIVE This HCGQL test is NOT applicable for MALE patients.Check with nurse about probable order error.If Tumor Marker Test needed, nurse should order test "HCGTU"(Test #550.69313) CBC W/O [id number] 09:30:00* Test Item Value Reference Range Interpretation Comments WHITE BLOOD CELL (test code = WBC) K/mm3 4.5-12.5 RED BLOOD CELL (test code = RBC) mill/mm3 3.7-5.2 HEMOGLOBIN (test code = HGB) 15.0 gram/dL 11.5-15.5 N HEMATOCRIT (test code = HCT) 43.9 % 36.0-46.0 N MEAN CELL VOLUME (test code = MCV) fL 80-98 MEAN CELL HGB (test code = MCH) picogram 27.0-33.0 MEAN CELL HGB CONCETRATION (test code = MCHC) gram/dL 33.0-36. 0 RED CELL DISTRIBUTION WIDTH (test code = RDW) % 11.6-16. 2 PLATELET COUNT (test code = PLT) K/mm3 150-450 MEAN PLATELET VOLUME (test code = MPV) fL 6.7-11.0
--- OUTSIDE RECORDS SUMMARY | 2020-08-19 10:25 | XMS REPORT | Continuity of Care Document ---
Author Author [employer] Organization [employer] Address Unknown Phone Unavailable Care Team Providers Care Information Tech Name Role Phone [facility] Information [facility] Unavailable Un available Problems Problem Status Onset Date Classification Date Reported Comments Source FOLLOW UP Active 09/27/2016 [facility] LFTS ABNORMAL, DIARRHEA, CROHNS DISEASE, Active 06/08/2016 [facility] BDDC/ K50.90 CROHN'S DISEASE, UNSPECIFIE Active 05/18/2016 [facility] BDDC - F/UPER BO Active 01/17/2016 [facility] Z12.31 - ENCNTR SCREEN MAMMOGRAM FOR MA Active 12/27/2015 CASEY Rawls BDAL-REGIONAL ENTERITIS Active 08/27/2014 [facility] 2 MO FU Active 05/07/2014 [facility] NEW PT/ IBD Active 03/24/2014 [facility] Encounter for screening mammogram for ma lignant neoplasm of breast 02/06/2020 CASEY Rawls Crohn's disease (disorder) Act sanju Problem 06/2020 [facility] O PID Curly Diabetes mellitus (disorder) A ctive Problem 06/2020 [facility] O PID Curly Inflammatory bowel disease (disorder) Resolved Problem 02/06/2020 [facility] CASEY Rawls Medications Medication Details Route Status Patient Instructions Ordering Provider Order Date Source GoLYTELY oral powder for reconstitution See Instructions, Take as directed by physician. Give jug for colonoscopy., # 1 ea, 0 Refill(s), Pharmacy: [facility] Active 05/18/2016 [facility] glimepiride PO, Daily, 0 Refil l(s) Active 12/16/2015 [facility] canagliflozin 300 MG Oral Tablet [Invokana] 300 mg = 1 tab, PO, Before Breakfast, # 30 tab, 5 Refill(s) Active 12/16/2015 [facility] POLYETHYLENE GLYCOL 3350 60 MG/ML / Pota ssium Chloride 0.01 MEQ/ML / Sodium Bicarbonate 0.02 MEQ/ML / Sodium Chloride 0.025 MEQ/ML / sodium sulfate 0.04 MEQ/ML Oral Solution [Golytely] 240 ml, PO, Q10Min, # 1 ea, 0 Refill(s), Pharmacy: [facility] Inactive 08/27/2014 [facility] nter POLYETHYLENE GLYCOL 3350 60 MG/ML / Pota ssium Chloride 0.01 MEQ/ML / Sodium Bicarbonate 0.02 MEQ/ML / Sodium Chloride 0.025 MEQ/ML / sodium sulfate 0.04 MEQ/ML Oral Solution [Golytely] 240 ml, PO, Q10Min, # 1 ea, 0 Refill(s), Pharmacy: [facility] Active 08/27/2014 [facility] nter Cimzia 0 Refill(s) Active 08/27/2014 [facility] nter Allergies, Adverse Reactions, Alerts Substance Category Reaction Severity Reaction type Status Date Reported Comments Source No Known Medication Allergies Assertion Drug aller gy SWAPNA Rawls Immunizations No Data Provided for This Section Results No Data Provided for This Section Pathology Reports No Data Provided for This Section Diagnostic Reports Report Value Date Source Breast Mammo Scrn LOCO w [place] incl CAD MA BILATERAL FIRST EVER DIGITAL SCREENING MAMMOGRAM 3D/2D WITH CAD: 02/03/2020 CLINICAL: Z12.31 Encounter For Screening Mammogram For Malignant Neoplasm Of Breast/Z12.31 Encounter For Screening Mammogram For Malignant Neoplasm Of Breast. Current study was evaluated with a Computer Aided Detection (CAD) system. COMPARISON:No prior exams were available for comparison. TECHNIQUE: Digital Breast Tomosynthesis was performed and utilized for Interpretation. Current study was also evaluated with a Computer Aided Detection (CAD) system. FINDINGS: There are scattered fibroglandular densities in both breasts. There are benign appearing calcifications and masses in both breasts. No significant masses, calcifications, or other findings are seen in either breast. IMPRESSION: BENIGN RECOMMENDATION:There is no mammographic evidence of malignancy. A 1 year screening mammogram is recommended.(02/03/2021) This exam was interpreted at [id number] for DAQUAN Boss 15. Professional services are provided by the [facility]. Selin Leal M.D. ak/joel:02/04/2020 08:53:25 [employer]ocom[employer] Firer(s): RT [facility]Chi[facility] 1/2 Mammogram BI-RADS: 2 Benign 02/03/2020 CASEY Rawls Consultation Notes No Data Provided for This Section Discharge Summaries No Data Provided for This Section History and Physicals No Data Provided for This Section Vital Signs Vital Sign Value Date Comments Source Weight 96.42 05/18/2016 [facility] BMI Calculated 37.65 05/18/2016 [facility] Temperature Oral (F) 99.1 F 05/18/2016 [facility] Heart Rate 99 05/18/2016 [facility] Height 160.02 cm 05/18/2016 [facility] Systolic (mm Hg) 146 05/18/2016 [facility] Diastolic (mm Hg) 87 05/18/2016 [facility] BMI Calculated 38.23 12/16/2015 [facility] Weight 97.898 12/16/2015 [facility] Height 160.02 cm 12/16/2015 [facility] Systolic (mm Hg) 149 12/16/2015 [facility] Diastolic (mm Hg) 94 12/16/2015 [facility] Respitory Rate 72 12/16/2015 [facility] Systolic (mm Hg) 131 08/27/2014 [facility] Diastolic (mm Hg) 84 08/27/2014 [facility] Respitory Rate 16 08/27/2014 [facility] Height 160.02 cm 08/27/2014 [facility] Weight 91.364 08/27/2014 [facility] BMI Calculated 35.68 08/27/2014 [facility] Encounters Location Location Details Encounter Type Encounter Number Reason For Visit Attending Provider ADM Date DC Date Status Source [facility] Outpatient [id number] Atthierno Kaur 08/27/2014 08/28/2014 [facility] Outpatient [id number] Atthierno Ertan 09/02/2014 09/02/2014 [facility] Outpatient [id number] Atthierno Ertmonalisa 12/16/2015 12/17/2015 [facility] Outpatient [id number] Nickolas Kaur 01/17/2016 [id number] Haresh Middleton 05/18/2016 05/19/2016 [facility] [place] [facility] Di[facility] [id number] Karla Reyes 02/03/2020 02/04/2020 [facility] [place] Procedures Procedure Code Date Perfomer Comments Source Barium swallow [id number] [facility] [place] Colonoscopy [id number] [facility] [place] Excision of gallbladder 803993 05 [facility] [place] Liver US scan [id number] [facility] [place] Assessment and Plan No Data Provided for This Section Plan of Care No Data Provided for This Section Social History Social History Date Source Social History TypeResponse Smoking Status Never smoker; Exposure to Tobacco Smoke None; Cigarette Smoking Last 365 Days No; Reg Smoking Cessation Counseling No 05/18/2016 [facility] Social History TypeResponse Smoking Status Never smoker; Exposure to Tobacco Smoke None; Cigarette Smoking Last 365 Days No; Reg Smoking Cessation Counseling No entered on: 05/18/16 05/18/2016 [facility] [place] Family History No Data Provided for This Section Advance Directives No Data Provided for This Section Functional Status No Data Provided for This Section
== END 2020-08-18 18:17 | disposition home or self-care (01) ==
LOC: ER 12:38
DX: R10.9 Unspecified abdominal pain (principal); R11.0 Nausea; R19.7 Diarrhea, unspecified; E11.9 Type 2 diabetes mellitus without complications; Z87.19 Personal history of other diseases of the digestive system
CPT/HCPCS: 36415; 74177; 80053; 81001; 82550; 82553; 83690; 84484; 84702; 85025; 99284; J2270; J2405; J3010; J7030; Q9967

== ENCOUNTER 2025-09-21 09:51 | Emergency (ER) | payer SELFPAY ==
[~2025-09-21] VITALS: Ht 160 cm; Wt 84.8 kg
[~2025-09-21 09:51] MED LIST changes: +COLACE100 MG PO; +PREDNISONE20 MG PO; +ULTRAM50 MG PO; +ZOFRAN4 MG SL
[2025-09-21 10:04] VITALS: TEMP 98.4
[2025-09-21] MEDS: DEXAMETHASONE SOD PHOS 10 MG/1 ML VIAL IM ONE (10:24)
[2025-09-21] MEDS: KETOROLAC TROMETHAMINE 30 MG/ML VIAL IM STA (10:25)
[2025-09-21 11:30] VITALS: PULSE 95; RESP 18
[2025-09-21] MEDS: TRAMADOL HCL 50 MG TAB PO ONE (11:33)
[2025-09-21] MEDS ORDERED: DEXAMETHASONE4 MG PO (11:59)
[2025-09-21 12:23] VITALS: BP 139/91; PULSE 89; RESP 18; TEMP 98.2; O2SAT 100
== END 2025-09-21 12:25 | disposition home or self-care (01) ==
LOC: ER 10:00
DX: M25.562 Pain in left knee (principal); M25.561 Pain in right knee; M25.462 Effusion, left knee; M25.461 Effusion, right knee; M25.541 Pain in joints of right hand; M25.441 Effusion, right hand; M19.09 Primary osteoarthritis, other specified site; E11.9 Type 2 diabetes mellitus without complications; Z87.19 Personal history of other diseases of the digestive system
CPT/HCPCS: 73130; 73562; 99283; J1100; J1885